=== PATIENT | male | born 2000 | race Caucasian/White ===

== ENCOUNTER 2022-01-24 18:05 | Emergency (ER) | payer OTHER ==
[~2022-01-24] VITALS: Ht 175.3 cm; Wt 92.0 kg
[2022-01-24 18:06] VITALS: BP 106/65
[2022-01-24] MEDS ORDERED: GI COCKTAIL 50ML BTL(HYOSCYAMINE/MAALOX/LIDOCAINE VISCOUS)(1:3:1) PO ONE (19:25)
[2022-01-24] MEDS ORDERED: PEPC1TAB5 PO (19:40)
== END 2022-01-24 19:49 | disposition home or self-care (01) ==
LOC: M ED 18:05
DX: K21.9 Gastro-esophageal reflux disease without esophagitis (principal)

== ENCOUNTER 2022-02-08 15:47 | Emergency (ER) | payer OTHER ==
[~2022-02-08] VITALS: Ht 177.8 cm; Wt 92.2 kg
[2022-02-08 15:47] VITALS: BP 106/63
[~2022-02-08 15:47] MED LIST: PEPC1TAB5 PO
== END 2022-02-08 19:02 | disposition left against medical advice (07) ==
LOC: M ED 15:47
DX: Z53.20 Procedure and treatment not carried out because of patient's decision for unspecified reasons (principal)

== ENCOUNTER 2022-05-11 20:40 | Emergency (ER) | payer OTHER ==
[~2022-05-11] VITALS: Ht 175.3 cm; Wt 89.8 kg
[2022-05-11 21:36] LABS: BASO # 0.1 10^3/uL (0.0-0.2); BASO % 0.7 % (0.0-1.0); EOS # 0.3 10^3/uL (0.0-0.5); EOS % 3.5 % (0.0-3.0); HEMATOCRIT 45.3 % (42.0-52.0); HEMOGLOBIN 15.2 g/dl (13.5-17.5); LYMPH % 41.9 % (24.0-44.0); MEAN CORPUSCULAR HEMOGLOBIN 29.5 pg (27.0-33.0); MEAN CORPUSCULAR HGB CONC 33.6 g/dl (32.0-36.5); MONO # 0.4 10^3/uL (0.0-0.8); NEUTROPHILS # 3.4 10^3/uL (1.5-8.5); NEUTROPHILS % 47.8 % (36.0-66.0); PLATELET COUNT, AUTOMATED 202 10^3/uL (150-450); RED BLOOD COUNT 5.15 10^6/uL (4.30-6.10); WHITE BLOOD COUNT 7.1 10^3/uL (4.0-10.0)
[2022-05-11 22:00] LABS: ALBUMIN 4.1 GM/DL (3.2-5.2); ALT/SGPT 13 U/L (12-78); BILIRUBIN,DIRECT 0.2 MG/DL (0.0-0.2); BILIRUBIN,TOTAL 0.3 MG/DL (0.2-1.0); BLOOD UREA NITROGEN 11 MG/DL (7-18); CALCIUM LEVEL 9.5 MG/DL (8.5-10.1); CARBON DIOXIDE LEVEL 28 MEQ/L (21-32); CHLORIDE LEVEL 110 MEQ/L (98-107); CREATININE FOR GFR 0.85 MG/DL (0.70-1.30); GLOMERULAR FILTRATION RATE > 60.0 (>60); GLUCOSE, FASTING 74 MG/DL (70-100); LIPASE 98 U/L (73-393); POTASSIUM SERUM 4.1 MEQ/L (3.5-5.1); SODIUM LEVEL 144 MEQ/L (136-145); TOTAL PROTEIN 7.4 GM/DL (6.4-8.2)
[2022-05-11] MEDS ORDERED: ONDANSETRON 4MG/2ML VIAL IV ONE (23:20)
[2022-05-11] MEDS ORDERED: NS 1,000 ML IV ONE (23:20)
[2022-05-11] MEDS ORDERED: KETOROLAC 30 MG/ML 1ML VIAL IV ONE (23:20)
[2022-05-11] MEDS ORDERED: ISOVUE-370 76% 100ML VIAL As Ordered ONE (23:22)
[2022-05-12 01:30] VITALS: BP 102/55
[2022-05-12] MEDS ORDERED: ONDA4TAB6 PO (01:45)
== END 2022-05-12 01:49 | disposition home or self-care (01) ==
LOC: M ED 20:40
DX: K52.9 Noninfective gastroenteritis and colitis, unspecified (principal); Z77.098 Contact with and (suspected) exposure to other hazardous, chiefly nonmedicinal, chemicals
CPT/HCPCS: 74177; 80048; 80076; 81001; 83690; 85025; 87086; 96374; 96375; 99284; J1885; J2405; Q9967

== ENCOUNTER 2022-07-14 21:47 | Emergency (ER) | payer OTHER ==
[~2022-07-14] VITALS: Ht 175.3 cm; Wt 86.4 kg
[~2022-07-14 21:47] MED LIST changes: +ONDA4TAB6 PO
[2022-07-15 02:32] VITALS: BP 125/68
== END 2022-07-15 02:37 | disposition home or self-care (01) ==
LOC: M ED 21:47
DX: F43.0 Acute stress reaction (principal); F32.A Depression, unspecified; F17.200 Nicotine dependence, unspecified, uncomplicated

== ENCOUNTER 2022-10-25 15:52 | Emergency (ER) | payer OTHER ==
[~2022-10-25] VITALS: Ht 172.7 cm; Wt 98.4 kg
[2022-10-25] MEDS ORDERED: OSEL75CA PO (16:09)
[2022-10-25] MEDS ORDERED: IBUP-351 PO (16:56)
[2022-10-25] MEDS ORDERED: AMOX875T2 PO (18:04)
[2022-10-25] MEDS ORDERED: ACETAMINOPHEN 500 MG TAB PO ONE (18:05)
[2022-10-25 18:11] VITALS: BP 126/74
== END 2022-10-25 18:13 | disposition home or self-care (01) ==
LOC: M ED 15:52
DX: H66.92 Otitis media, unspecified, left ear (principal); B34.9 Viral infection, unspecified; Z87.09 Personal history of other diseases of the respiratory system